=== PATIENT | female | born 1955 | race Caucasian/White ===

== ENCOUNTER 2023-02-26 12:07 | Emergency (ER) | payer BC, MEDICARE ==
[~2023-02-26] VITALS: Ht 157.5 cm; Wt 53.1 kg
[2023-02-26 12:49] VITALS: BP 150/89; PULSE 70; RESP 20
== END 2023-02-26 13:28 | disposition left against medical advice (07) ==
LOC: EDH 12:07
DX: R10.9 Unspecified abdominal pain (principal); Z53.21 Procedure and treatment not carried out due to patient leaving prior to being seen by health care provider